=== PATIENT | female | born 1970 | race African-American/Black ===

== ENCOUNTER 2018-11-16 16:08 | Emergency (ER) | payer OTHER ==
[2018-11-16 16:22] VITALS: BP 152/82; PULSE 75; TEMP 98.3; BMI 37.8
--- NOTE | 2018-11-16 16:25 | PDOC ---
Rapid Medical Evaluation Chief Complaint: Pain, Acute Time Seen by Provider: 11/16/18 16:20 Medical Evaluation: 11/16/18 16:21 I have performed a brief in-person evaluation of this patient. The patient presents with a chief complaint of: mid point abd pain with protrusion Pertinent physical exam findings: no fevers , no bowel / bladder or vaginal pain. I have ordered the following: US umbilical hernia The patient will proceed to the ED for further evaluation. Discharge Disposition - Diagnosis Abdominal pain - Referrals - Patient Instructions - Post Discharge Activity
[2018-11-16] MEDS ORDERED: IBUPROFEN 600 MG TABLET (FP) PO ONE ×2 (17:44→18:53)
[2018-11-16 18:24] LABS: EPI CELLS 12.2 /HPF (0-5/HPF); HYALINE CASTS 9 /lpf (0-8); URINE APPEARANCE CLEAR; URINE BACTERIA 1259.5 /hpf (NEGATIVE); URINE BILIRUBIN NEGATIVE (NEGATIVE); URINE COLOR YELLOW; URINE GLUCOSE (UA) NEGATIVE (NEGATIVE); URINE KETONE TRACE (NEGATIVE); URINE LEUK ESTERASE NEGATIVE (NEGATIVE); URINE NITRITE NEGATIVE (NEGATIVE); URINE PROTEIN NEGATIVE (NEGATIVE); URINE RBC 1 /hpf (0-4); URINE UROBILINOGEN 0.2 mg/dL (0.2-1.0); URINE WBC 8 /hpf (0-5)
[2018-11-16 18:25] LABS: HCG,QUALITATIVE URINE Negative
--- NOTE | 2018-11-16 18:32 | PDOC ---
History of Present Illness - General Chief Complaint: Pain, Acute Stated Complaint: ABD PAIN Time Seen by Provider: 11/16/18 16:20 History Source: Patient Exam Limitations: No Limitations - History of Present Illness Travel History: No Initial Comments: 11/16/18 17:33 48-year-old female presents to ED with sudden onset of a bump to her umbilical region at around 2 PM while at work. Patient states had noted it when she was opening up a box and so decided come to the ER when symptoms continued. Patient denies history of umbilical hernia, surgery to the area, nausea, change in bowel pattern, or radiation of pain. Timing/Duration: reports: constant Quality: reports: moderate, burning, sharpness Abdominal Pain Onset Location: reports: suprapubic Pain Radiation: reports: no radiation Activities at Onset: reports: none Aggravating Factors: improves with: Movement Alleviating Factors: improves with: None Past History - Travel Traveled outside of the country in the last 30 days: No Close contact w/someone who was outside of country & ill: No - Past Medical History Allergies/Adverse Reactions: Allergies Allergy/AdvReac Type Severity Reaction Status Date / Time No Known Allergies Allergy Verified 11/16/18 16:22 Cardiac Disorders: (PE 12 YEARSN AGO) COPD: No - Suicide/Smoking/Psychosocial Hx Smoking History: Never smoked Hx Alcohol Use: Yes (socially) Drug/Substance Use Hx: No Patient Lives Alone: No Lives with/in: spouse/SO Review of Systems - Review of Systems Able to Perform ROS?: Yes Constitutional: No: Symptoms Reported ABD/GI: Yes: See HPI : No: Symptoms Reported Musculoskeletal: No: Symptoms Reported Integumentary: Yes: Lumps *Physical Exam - Vital Signs Last Vital Signs Temp Pulse Resp BP Pulse Ox 98.3 F 75 16 152/82 97 11/16/18 16:19 11/16/18 16:19 11/16/18 16:19 11/16/18 16:19 11/16/18 16:19 - Physical Exam General Appearance: Yes: Nourished, Appropriately Dressed. No: Apparent Distress Gastrointestinal/Abdominal: positive: Other (Tender but soft 2-3 cm circular round raised mass above the umbilicus. Able to reduce within seconds while laying flat with minimal exertion/pressure applied.) Integumentary: positive: Normal Color, Warm, Moist Neurologic: positive: Motor Strength 5/5 (ambulatory) ED Treatment Course - ADDITIONAL ORDERS Additional order review: Laboratory Results 11/16/18 18:00 Urine Color Yellow Urine Appearance Clear Urine pH 5.0 Ur Specific [place] 1.035 Urine Protein Negative Urine Glucose (UA) Negative Urine Ketones Trace H Urine Blood 2+ H Urine Nitrite Negative Urine Bilirubin Negative Urine Urobilinogen 0.2 Ur Leukocyte Esterase Negative Urine WBC (Auto) 8 Urine RBC (Auto) 1 Urine Casts (Auto) 9 U Epithel Cells (Auto) 12.2 Urine Bacteria (Auto) 1259.5 Medical Decision Making - Medical Decision Making 11/16/18 17:39 CC: painful lump to umbilicus since 2 pm Exam: reducible mass above umbilicus Plan: u/s and motrin 11/16/18 18:39 Laboratory Tests 11/16/18 18:00 Urine Ketones Trace H Urine Blood 2+ H Urine Nitrite Negative Urine Bilirubin Negative Ur Leukocyte Esterase Negative Urine WBC (Auto) 8 Urine RBC (Auto) 1 Urine HCG, Qual Negative *DC/Admit/Observation/Transfer Diagnosis at time of Disposition: Abdominal pain, Umbilical hernia without obstruction or gangrene - Discharge Dispostion Disposition: HOME - Referrals Referrals: Sarthak White [Primary Care Provider] - Cory Foote MD [Staff Physician] - Call tomorrow - Patient Instructions Printed Discharge Instructions: Abdominal Hernia Additional Instructions: follow-up with the surgeon as soon as possible. return to the emergency room for any severe abdominal pain , worsening symptoms - Post Discharge Activity Forms/Work/School Notes: Back to Work
--- NOTE | 2018-11-16 19:24 | PDOC ---
*Physical Exam - Vital Signs Last Vital Signs Temp Pulse Resp BP Pulse Ox 98.3 F 75 16 152/82 97 11/16/18 16:19 11/16/18 16:19 11/16/18 16:19 11/16/18 16:19 11/16/18 16:19 ED Treatment Course - ADDITIONAL ORDERS Additional order review: Laboratory Results 11/16/18 18:00 Urine Color Yellow Urine Appearance Clear Urine pH 5.0 Ur Specific [place] 1.035 Urine Protein Negative Urine Glucose (UA) Negative Urine Ketones Trace H Urine Blood 2+ H Urine Nitrite Negative Urine Bilirubin Negative Urine Urobilinogen 0.2 Ur Leukocyte Esterase Negative Urine WBC (Auto) 8 Urine RBC (Auto) 1 Urine Casts (Auto) 9 U Epithel Cells (Auto) 12.2 Urine Bacteria (Auto) 1259.5 Urine HCG, Qual Negative - Medications Given in the ED: ED Medications Discontinued Medications Generic Name Dose Route Start Last Admin Trade Name Freq PRN Reason Stop Dose Admin Ibuprofen 600 mg 11/16/18 17:44 11/16/18 18:40 Motrin - PO 11/16/18 17:45 600 mg ONCE ONE Administration Medical Decision Making - Medical Decision Making 11/16/18 19:57 no mass at the umbillicus . pain improved. advised to follow up with pcp/ surgeon *DC/Admit/Observation/Transfer Diagnosis at time of Disposition: Abdominal pain, Umbilical hernia without obstruction or gangrene - Discharge Dispostion Disposition: HOME - Referrals Referrals: Sarthak White [Primary Care Provider] - Cory Foote MD [Staff Physician] - Call tomorrow - Patient Instructions Printed Discharge Instructions: Abdominal Hernia Additional Instructions: follow-up with the surgeon as soon as possible. return to the emergency room for any severe abdominal pain , worsening symptoms - Post Discharge Activity Forms/Work/School Notes: Back to Work
== END 2018-11-16 20:36 | disposition home or self-care (01) ==
LOC: JER 16:08
DX: K42.9 Umbilical hernia without obstruction or gangrene (principal)
CPT/HCPCS: 76705-TC; 81003; 84703; 99282-25